=== PATIENT | female | born 1995 | race American Indian/Alaskan Native ===

== ENCOUNTER 2017-09-04 02:30 | Emergency (ER) | payer MEDICAID ==
[2017-09-04] MEDS ORDERED: Acetaminophen 325 MG Tab PO ONE (03:00)
[2017-09-04 03:34] LABS: CHLORIDE,CL 109 mmol/L (101-111); SODIUM,NA 137 mmol/L (135-145)
--- NOTE | 2017-09-04 03:41 | EDM.PDOC ---
ED HPI GENERAL MEDICAL PROBLEM - General Chief Complaint: Headache Stated Complaint: HEADACHES Time Seen by Provider: 09/04/17 02:58 Source of Information: Reports: Patient History Limitations: Reports: No Limitations - History of Present Illness INITIAL COMMENTS - FREE TEXT/NARRATIVE: C/o headache for past 3 days with congestion and cough. Tried tylenol yesterday and seemed to help for awhile. No vomiting. Ears hurt, feel full, sorethroat. Unsure if fever. Last Tylenol yesterday morning. Bilateral Head Pain Score (Numeric/FACES): 6 - Related Data Allergies Allergy/AdvReac Type Severity Reaction Status Date / Time No Known Allergies Allergy Verified 09/04/17 02:59 Home Meds: Home Meds . [No Known Home Meds] 09/04/17 [History] Past Medical History - Past Health History Medical/Surgical History: Denies Medical/Surgical History Cardiovascular History: Reports: Syncope, Other (See Below) Other Cardiovascular History: chest pain [employer] History: Reports: - Past Surgical History Cardiovascular Surgical History: Reports: None Social & Family History - Family History Family Medical History: Noncontributory - Tobacco Use Smoking Status *Q: Current Every Day Smoker Years of Tobacco use: 4 Packs/Tins Daily: 1 Second Hand Smoke Exposure: Yes - Caffeine Use Caffeine Use: Reports: Soda - Alcohol Use Days Per Week of Alcohol Use: 0 - Recreational Drug Use Recreational Drug Use: No - Living Situation & Occupation Living situation: Reports: with Family Occupation: Student ED ROS GENERAL - Review of Systems Review Of Systems: See Below Constitutional: Reports: Fatigue HEENT: Reports: Ear Pain, Sinus Problem Respiratory: Reports: Cough GI/Abdominal: Reports: No Symptoms : Reports: No Symptoms Musculoskeletal: Reports: No Symptoms Skin: Reports: Wound Neurological: Reports: No Symptoms Psychiatric: Reports: No Symptoms - Physical Exam Exam: See Below Exam Limited By: No Limitations General Appearance: Alert, Anxious, Mild Distress Eye Exam: Bilateral Eye: EOMI, PERRL Ears: Normal External Exam Nose: Normal Inspection Throat/Mouth: Normal Inspection Head Exam: Atraumatic Neck: Normal Inspection, Full Range of Motion Respiratory/Chest: No Respiratory Distress, Lungs Clear, Normal Breath Sounds, Other (ocassional dry cough) Cardiovascular: Normal Peripheral Pulses, Regular Rate, Rhythm, No Edema GI/Abdominal: Normal Bowel Sounds (Female) Exam: Vaginal Discharge Neuro Exam (Abbreviated): Alert, Oriented, Normal Cognition Course - Vital Signs Last Recorded V/S: Last Vital Signs Temp 98.4 F 09/04/17 02:38 Pulse 109 H 09/04/17 02:38 Resp 16 09/04/17 02:38 BP 114/58 L 09/04/17 02:38 Pulse Ox 98 09/04/17 02:38 - Orders/Labs/Meds Orders: Active Orders 24 hr Category Date Time Status CULTURE STREP A CONFIRMATION [RM] Stat Lab 09/04/17 02:57 Results STREP SCRN A RAPID W CULT CONF [RM] Stat Lab 09/04/17 02:57 Ordered UA W/MICROSCOPIC [URIN] Stat Lab 09/04/17 03:20 Ordered Labs: Laboratory Tests 09/04/17 09/04/17 09/04/17 Range/Units 03:05 03:05 03:20 WBC 7.8 (5.0-10.0) 10^3/uL RBC 3.73 L (4.2-5.4) 10^6/uL Hgb 11.0 L D (12.0-16.0) g/dL Hct 32.9 L (37.0-47.0) % MCV 88.2 (80-100) fL MCH 29.5 (27.0-34.0) pg MCHC 33.4 (33.0-35.0) g/dL Plt Count 256 (150-450) 10^3/uL Neut % (Auto) 77.7 H (42.2-75.2) % Lymph % (Auto) 13.3 L (20.5-50.1) % Blair % (Auto) 7.9 (2-8) % Eos % (Auto) 0.8 L (1.0-3.0) % Baso % (Auto) 0.3 (0.0-1.0) % Add Manual Diff Yes Neutrophils % (Manual) 44 (42-75) % Band Neutrophils % 23 % Lymphocytes % (Manual) 19 L (20-50) % Atypical Lymphs % 0 % Monocytes % (Manual) 12 H (2-8) % Eosinophils % (Manual) 2 (1-3) % Basophils % (Manual) 0 Sodium 137 (135-145) mmol/L Potassium 3.3 L (3.6-5.0) mmol/L Chloride 109 (101-111) mmol/L Carbon Dioxide 21.0 (21.0-31.0) mmol/L Anion Gap 10.3 BUN 7 (7-18) mg/dL Creatinine 0.4 L (0.6-1.3) mg/dL Est Cr Clr Drug Dosing 195.34 mL/min Estimated GFR (MDRD) > 60 BUN/Creatinine Ratio 17.50 Glucose 135 H (74-105) mg/dL Calcium 8.6 (8.4-10.2) mg/dl Total Bilirubin 0.5 (0.2-1.0) mg/dL AST 28 (10-42) IU/L ALT 20 (10-60) IU/L Alkaline Phosphatase 79 (42-121) IU/L Total Protein 6.1 L (6.7-8.2) g/dl Albumin 2.7 L (3.2-5.5) g/dl Globulin 3.4 Albumin/Globulin Ratio 0.79 Urine Color Yellow (YELLOW) Urine Appearance Slightly cloudy (CLEAR) Urine pH 6.5 (5.0-9.0) Ur Specific Moore 1.010 (1.005-1.030) Urine Protein Negative (NEGATIVE) Urine Glucose (UA) Negative (NEGATIVE) Urine Ketones Negative (NEGATIVE) Urine Occult Blood Negative (NEGATIVE) Urine Nitrite Negative (NEGATIVE) Urine Bilirubin Negative (NEGATIVE) Urine Urobilinogen 0.2 (0.2-1.0) mg/dL Ur Leukocyte Esterase Negative (NEGATIVE) Urine RBC Not seen /HPF Urine WBC 0-5 (0-5/HPF) /HPF Ur Epithelial Cells Moderate H /HPF Urine Bacteria Moderate H (0-FEW/HPF) /HPF Urine Yeast Few H (0/HPF) /HPF Meds: Medications Discontinued Medications Generic Name Dose Route Start Last Admin Trade Name Freq PRN Reason Stop Dose Admin Acetaminophen 650 mg 09/04/17 03:00 09/04/17 03:12 Tylenol PO 09/04/17 03:01 650 mg NOW ONE Administration Departure - Departure Time of Disposition: 03:45 Disposition: Home, Self-Care 01 Condition: Good Clinical Impression: Sinusitis, Second trimester - Discharge Information Instructions: Sinus Headache Forms: ED Department Discharge Additional Instructions: Tylenol 650mg every 6 hours as needed for headache pain Muccinex or guaifenesin peer package instructions every 4 hours as needed clinic follow up Thursday if not improved - My Orders Last 24 Hours: My Active Orders 09/04/17 02:57 CULTURE STREP A CONFIRMATION [RM] Stat STREP SCRN A RAPID W CULT CONF [RM] Stat 09/04/17 03:20 UA W/MICROSCOPIC [URIN] Stat - Assessment/Plan Last 24 Hours: My Active Orders 09/04/17 02:57 CULTURE STREP A CONFIRMATION [RM] Stat STREP SCRN A RAPID W CULT CONF [RM] Stat 09/04/17 03:20 UA W/MICROSCOPIC [URIN] Stat
[2017-09-04 04:11] VITALS: BP 114/67
== END 2017-09-04 04:03 | disposition home or self-care (01) ==
LOC: DL.ED 02:30
DX: O99.512 Diseases of the respiratory system complicating pregnancy, second trimester (principal); J32.9 Chronic sinusitis, unspecified; O99.332 Smoking (tobacco) complicating pregnancy, second trimester; F17.210 Nicotine dependence, cigarettes, uncomplicated
CPT/HCPCS: 36415; 80053; 81001; 85025; 87081; 87430; 99284; A9270

== ENCOUNTER 2017-12-27 23:52 | Inpatient (IN) | payer MEDICAID ==
[2017-12-28] MEDS ORDERED: fentaNYL 100 MCG/2 ML SDV ITHECAL ONE (01:20)
[2017-12-28] MEDS ORDERED: Bupivacaine 0.75%/D5W 2 ML Amp INJECT ONE (01:20)
[2017-12-28] MEDS ORDERED: ePHEDrine 50 MG/ML SDV IV ONE (01:20)
[2017-12-28] MEDS ORDERED: EPINEPHrine 1 MG/ML SDV IV ONE (01:20)
[2017-12-28] MEDS ORDERED: Penicillin G Potassium 5 MILLUNITS in Sodium Chloride 0.9% 100 ML IV ONE (01:35)
[2017-12-28] MEDS ORDERED: Sodium Chloride 0.9% 100 ML ONE (01:40)
[2017-12-28] MEDS: Lactated Ringers 1,000 ML IV SCH ×4 (01:45→07:08)
[2017-12-28] MEDS ORDERED: Methylergonovine 0.2 MG/1 ML Amp IM PRN (02:03)
[2017-12-28] MEDS ORDERED: Carboprost Tromethamine 250 MCG/1 ML Amp IM PRN (02:03)
[2017-12-28] MEDS ORDERED: Misoprostol 400 MCG (4 X 100 MCG TAB) RECTAL PRN ×2 (02:03→12:40)
[2017-12-28] MEDS ORDERED: Tranexamic Acid 1,000 MG in Sodium Chloride 0.9% 100 ML IV PRN (02:03)
[2017-12-28] MEDS ORDERED: Sodium Chloride 0.9% 10 ML Syringe FLUSH PRN (02:03)
[2017-12-28] MEDS ORDERED: Ondansetron 4 MG/2 ML SDV IV PRN (02:03)
[2017-12-28] MEDS ORDERED: Lidocaine 1% 30 ML SDV INJECT PRN (02:03)
[2017-12-28] MEDS ORDERED: Acetaminophen 325 MG Tab PO PRN (02:03)
[2017-12-28] MEDS ORDERED: Lactated Ringers 500 ML IV ONE (02:03)
[2017-12-28] MEDS ORDERED: Lactated Ringers 1,000 ML IV SCH (02:15)
[2017-12-28] MEDS ORDERED: Oxytocin/Normal Saline 30 UNIT/500 ML BAG IV SCH ×2 (02:15→02:45)
[2017-12-28] MEDS ORDERED: Nalbuphine 10 MG/1 ML Vial IV PRN (03:00)
[2017-12-28] MEDS ORDERED: Nalbuphine 10 MG/1 ML Vial IM PRN (03:01)
[2017-12-28] MEDS ORDERED: EPINEPHrine 1 MG/ML SDV ONE (05:54)
[2017-12-28] MEDS ORDERED: fentaNYL 100 MCG/2 ML SDV ONE (05:54)
[2017-12-28] MEDS ORDERED: Bupivacaine 0.75%/D5W 2 ML Amp ONE (05:54)
[2017-12-28] MEDS: Penicillin G Potassium 3 MILLUNITS in Sodium Chloride 0.9% 100 ML IV SCH ×3 (06:00→21:56)
--- NOTE | 2017-12-28 06:44 | PCM.PRNOTE ---
- Free Text/Narrative Note: Requested to provide analgesia to full term patient in severe pain. Upon entering the room, patient is supine in bed complaining of severe abdominal/ pelvic pain and discomfort. Procedure was discussed with patient including adverse outcomes and expectations. Pt consented to analgesia, SAB/IT. Pt placed into a sitting position. Landmarks for SAB/IT were identified and marked. Hands were washed and appropriate PPE was applied. Back was prepped with betadine x3. A sterile, transparent, fenestrated drape was applied. Excess betadine was removed. Using 3 mL of a 1% lidocaine solution, a skin wheel was placed at the L3/L4 interspace. A 24 ga (4 inch) Pencan spinal needle was inserted until positive for CSF. Negative for heme or paresthesias. Injected fentanyl 30 mcg, sufentanil 25 mcg, and 10.5 mg of a 0.75% bupivacaine solution with an epi wash. Pt was placed left lateral position for approximately 5 minutes. Pt developed hypotension and was immediately turned further left lateral, O2 was applied and a fluid bolus was given. Pt was also given ephedrine 10mg IVP. Only had two decels then immediately returned to baseline. No further indications of hypotension after fluid bolus. Will continue to monitor. Procedure Date & Time: 12/28/2017 [id number]
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
--- NOTE | 2017-12-28 09:26 | PCM.SN ---
- Free Text/Narrative Note: DOS: 8-27-18 Tremaine is 22yo NA primip who was admitted during the night with SROM at term. evaluated and admitted by Brett. GBS + and has received 2 doses of PCN. IUPC placed and pitocin infusion started. intrathecal placed and working well. heart tracings reassuring. cervical exam--now completely dilated. bulging forebag palpable with cxn, and AROM reveals mod amount clear fluid. vertex still high and will let her labor down for a while. baseline 125 with early decels now noted. iupc showing peaks of 25 right now--will increase pitocin from 6 to maximize effectiveness while intrathecal is in. further management pending her clinical course. all questions answered for Tremaine, her SO and family. b
--- NOTE | 2017-12-28 09:58 | PN ---
DATE: 12/28/2017 SUBJECTIVE: The patient is still feeling her contractions. Ferning test came back positive. Blood pressure 139/67, heart rate 79. Tocometer has been reading contractions every 1-1/2 minutes, now it seemed to be maybe spacing out. OBJECTIVE: heart tones in the 130s to 140s range. Tocometer, difficult reading contractions, sometimes are as close as every 1-1/2 minutes apart. Fern test came back positive. Vaginal exam reveals her to be 3 cm, 85% to 90% effaced, 0 station, vertex suspected, and IUPC placed after discussion with the patient. ASSESSMENT/PLAN: 1. Intrauterine at 38 weeks by 13 and 2/7 week ultrasound with GBS positive status. Penicillin has been given and vaginal leaking with positive ferning, suspect premature rupture of membranes. We will start Pitocin if need be. IUPC has been placed to further evaluate and monitor contractions. 2. Impaired glucose tolerance. We will follow clinically and closely. At this point in time, initial sugar was within range. I did discuss with the patient, the plan as above. IUPC placed as above and she will be requesting something for pain in the future, and this was discussed with nurse as well. [facility] /[id number]
--- NOTE | 2017-12-28 10:04 | OBOUT ---
DATE: 12/28/2017 TIME OF NST: 1:20 to 1:40. REASON FOR NST: 1. Intrauterine at that time 38 weeks by 13 and 2/7 weeks ultrasound. 2. Contractions with cervical change. 3. Group B Streptococcus positive. 4. Vaginal leaking. 5. History of chlamydia in the first trimester, treated, negative on 12/11/2017. 6. Impaired glucose tolerance. 7. 1, para 0. NST INTERPRETATION: During this time period, heart tone baseline is approximately 130 and there are at least two 15 x 15 beat per minute accelerations, making this strip reactive. It is also noted to be reassuring. Tocometer reveals potential of 7 contractions during this time period felt by the patient. ASSESSMENT: 1. Nonstress test, reactive and reassuring. 2. Tocometer with contractions. PLAN: Please see admit history and physical for further details. [facility] /[id number]
--- NOTE | 2017-12-28 12:21 | PCM.DEL ---
L & D Note - General Info Date of Service: 12/28/17 (time of delivery 1127) Mother's Due Date: 01/11/18 (38 weeks) - Delivery Note Labor: Spontaneous, Augmented by Oxytocin Delivery Outcome: Livebirth Delivery Method: Spontaneous Vaginal Delivery-Single Infant Delivery Mode: Vacuum Extraction Presentation: was OP until delivery Nuchal Cord: None Prep: Povidone-Iodine (Betadine Anesthesia Type: Local, Intrathecal Anesthetic: Lidocaine (Xylocaine) 1% Plain Local Anesthetic Volume: 5cc Amniotic Fluid Description: Clear Episiotomy Type: None Laceration: 2nd Degree Suture type: Vicryl Suture size: 2-0 Placenta: Intact, Expressed Cord: 3 Vessels Estimated Blood Loss: 250 Resuscitation Needed: No [place]: Suctioned, Bulb Syringe, Stimulated, Warmed, [place] Used Provider: Mariel Coleman Score 1 min: 8 Score 5 min: 9 Second Stage Interventions: Reports: Laboring Down, Pushing Effectively, Pushing , Feet in Foot Rests, Pushing, Pulls Own Legs Back Delivery Comments (Free Text/Narrative):: Pushing well with assist of family and staff, pulling legs back. baby OP position, coming down to . low profile vacuum applied X 1 cxn and baby rotated and delivered JUANA without difficulty. delivered to mother's abdomen. APGARs 8 & 9 Vacuum Extractor Progress Note - Alternative Labor Strategies Considered Alternative Labor Strategies Considered:: Reports: Yes Strategies Considered:: Reports: Contraction Intensity Adequate, Position Changes Used to Facilitate Rotation & Descent, Empty Bladder, Rest Indications Considered:: Reports: Yes Indications:: Reports: Shortening of 2nd Stage for Maternal Benefit, Suspicion of Immediate or Potential Compromise Time Out:: Reports: Yes - Patient Prepared Patient Prepared:: Reports: Yes Informed Consent:: Reports: Yes, Verbal Risks: Reports: Yes Anesthesia/Analgesia Adequate:: Reports: Yes - Probability of Success High Probability of Success:: Reports: Yes Weight Estimated:: Reports: AGA Patient Diabetic:: Reports: Yes Pelvis Adequate:: Reports: Yes Position:: OP at time of application, rotated to JUANA at delivery Asynclitic:: Reports: No Station:: - Application Time Maximum Application Time & Number of Pop-Offs Predetermined:: Reports: Yes Total Application Time (min): *max=20min: 2 (1 cxn) Number of Times Cup Disengaged:: 0 Type of Vacuum Used:: Reports: Low profile Comments:: applied with part of 1 cxn - Exit Strategy Exit strategy available:: Reports: Yes and resuscitation teams readily available:: Reports: Yes Consult as indicated:: not indicated - General Info Date of Service: 12/28/17 Admission Dx/Problem (Free Text): 38 week 22yo NA G1 SROM pitocin augmentation IUPC VAVD intrathecal 2 degree lac gestational DM/glucose intolerance GBS+ A+ RI Hx chlamydia Functional Status: Reports: Pain Controlled - Review of Systems General: Reports: No Symptoms HEENT: Reports: No Symptoms Pulmonary: Reports: No Symptoms Cardiovascular: Reports: No Symptoms Gastrointestinal: Reports: No Symptoms Genitourinary: Reports: No Symptoms Musculoskeletal: Reports: No Symptoms Skin: Reports: No Symptoms Neurological: Reports: No Symptoms Psychiatric: Reports: No Symptoms - Patient Data Vitals - Most Recent: Last Vital Signs Temp 98.6 F 12/28/17 06:08 Pulse 76 12/28/17 07:05 Resp 16 12/28/17 07:05 BP 115/64 12/28/17 07:05 Pulse Ox 99 12/28/17 07:00 Weight - Most Recent: 255 lb Lab Results Last 24 Hours: Laboratory Results - last 24 hr 12/28/17 12/28/17 12/28/17 Range/Units 00:05 00:24 01:50 WBC (5.0-10.0) 10^3/uL RBC (4.2-5.4) 10^6/uL Hgb (12.0-16.0) g/dL Hct (37.0-47.0) % MCV (80-100) fL MCH (27.0-34.0) pg MCHC (33.0-35.0) g/dL Plt Count (150-450) 10^3/uL POC Glucose 71 (70-105) mg/dl Urine Color Yellow (YELLOW) Urine Appearance Turbid (CLEAR) Urine pH 6.5 (5.0-9.0) Ur Specific [place] 1.025 (1.005-1.030) Urine Protein 30 H (NEGATIVE) Urine Glucose (UA) Negative (NEGATIVE) Urine Ketones Negative (NEGATIVE) Urine Occult Blood Negative (NEGATIVE) Urine Nitrite Negative (NEGATIVE) Urine Bilirubin Negative (NEGATIVE) Urine Urobilinogen 0.2 (0.2-1.0) mg/dL Ur Leukocyte Esterase Negative (NEGATIVE) Urine RBC 5-10 H /HPF Urine WBC 20-30 H (0-5/HPF) /HPF Ur Epithelial Cells Many H /HPF Amorphous Sediment Few (0/HPF) /HPF Urine Bacteria Moderate H (0-FEW/HPF) /HPF Urine Mucus Few H /LPF Amniotic Ferning Test Present 12/28/17 Range/Units 02:45 WBC 10.5 H (5.0-10.0) 10^3/uL RBC 4.01 L (4.2-5.4) 10^6/uL Hgb 11.8 L (12.0-16.0) g/dL Hct 35.6 L (37.0-47.0) % MCV 88.8 (80-100) fL MCH 29.4 (27.0-34.0) pg MCHC 33.1 (33.0-35.0) g/dL Plt Count 289 (150-450) 10^3/uL POC Glucose (70-105) mg/dl Urine Color (YELLOW) Urine Appearance (CLEAR) Urine pH (5.0-9.0) Ur Specific [place] (1.005-1.030) Urine Protein (NEGATIVE) Urine Glucose (UA) (NEGATIVE) Urine Ketones (NEGATIVE) Urine Occult Blood (NEGATIVE) Urine Nitrite (NEGATIVE) Urine Bilirubin (NEGATIVE) Urine Urobilinogen (0.2-1.0) mg/dL Ur Leukocyte Esterase (NEGATIVE) Urine RBC /HPF Urine WBC (0-5/HPF) /HPF Ur Epithelial Cells /HPF Amorphous Sediment (0/HPF) /HPF Urine Bacteria (0-FEW/HPF) /HPF Urine Mucus /LPF Amniotic Ferning Test Med Orders - Current: Current Medications Acetaminophen (Tylenol) 650 mg PO Q4H PRN PRN Reason: Pain (Mild 1-3) and fever Carboprost Tromethamine (Hemabate Ds) 250 mcg IM ASDIRECTED PRN PRN Reason: HEMORRHAGE Lactated Ringer's (Ringers, Lactated) 1,000 mls @ 125 mls/hr IV ASDIRECTED AVA Last Admin: 12/28/17 07:08 Dose: 125 mls/hr Lactated Ringer's (Ringers, Lactated) 1,000 mls @ 125 mls/hr IV ASDIRECTED AVA Oxytocin/Sodium Chloride (Pitocin In Ns 30 Unit/500 Ml) 30 unit in 500 mls @ 2 mls/hr IV TITRATE AVA; Protocol Last Titration: 12/28/17 06:49 Dose: 0 mls/hr Penicillin G Potassium 3 (millunits/ Sodium Chloride) 100 mls @ 200 mls/hr IV Q4HR AVA Last Admin: 12/28/17 10:41 Dose: 200 mls/hr Tranexamic Acid 1,000 mg/ (Sodium Chloride) 110 mls @ 660 mls/hr IV ONETIME PRN PRN Reason: Bleeding Oxytocin/Sodium Chloride (Pitocin In Ns 30 Unit/500 Ml) 30 unit in 500 mls @ 2 mls/hr IV TITRATE AVA; Protocol Lidocaine HCl (Xylocaine-Mpf 1%) 10 ml INJECT ASDIRECTED PRN PRN Reason: Perineal Repair Methylergonovine Maleate (Methergine) 0.2 mg IM ASDIRECTED PRN PRN Reason: Hemorrhage Misoprostol (Cytotec) 800 mcg RECTAL ASDIRECTED PRN PRN Reason: Hemorrhage Nalbuphine HCl (Nubain) 10 mg IV ONETIME PRN PRN Reason: pain Nalbuphine HCl (Nubain) 20 mg IM ONETIME PRN PRN Reason: Pain Last Admin: 12/28/17 03:57 Dose: 20 mg Ondansetron HCl (Zofran) 4 mg IV Q4H PRN PRN Reason: Nausea/Vomiting Sodium Chloride (Saline Flush) 10 ml FLUSH ASDIRECTED PRN PRN Reason: Keep Vein Open Discontinued Medications Bupivacaine HCl/Dextrose (Marcaine 0.75% Spinal) Confirm Administered Dose 2 ml .ROUTE .STK-MED ONE Stop: 12/28/17 05:55 Bupivacaine HCl/Dextrose (Marcaine 0.75% Spinal) 1.4 ml INJECT .STK-MED ONE Stop: 12/28/17 01:21 Ephedrine Sulfate (Ephedrine Sulfate) 20 mg IV .STK-MED ONE Stop: 12/28/17 01:21 Epinephrine HCl (Adrenalin) Confirm Administered Dose 1 mg .ROUTE .STK-MED ONE Stop: 12/28/17 05:55 Epinephrine HCl (Adrenalin) 0.1 mg IV .STK-MED ONE Stop: 08/27/18 01:21 Fentanyl (Sublimaze) Confirm Administered Dose 100 mcg .ROUTE .STK-MED ONE Stop: 12/28/17 05:55 Fentanyl (Sublimaze) 30 mcg ITHECAL .STK-MED ONE Stop: 12/28/17 01:21 Penicillin G Potassium 5 (millunits/ Sodium Chloride) 100 mls @ 200 mls/hr IV ONETIME ONE Stop: 12/28/17 02:04 Last Admin: 12/28/17 01:45 Dose: 200 mls/hr Sodium Chloride (Normal Saline) Confirm Administered Dose 100 mls @ as directed .ROUTE .STK-MED ONE Stop: 12/28/17 01:41 Lactated Ringer's (Ringers, Lactated) 500 mls @ 500 mls/hr IV .BOLUS ONE Stop: 12/28/17 03:02 Lidocaine HCl (Xylocaine-Mpf 1%) 3 ml INJECT .STK-MED ONE Stop: 12/28/17 01:21 Sufentanil Citrate (Sufenta) Confirm Administered Dose 50 mcg .ROUTE .STK-MED ONE Stop: 12/28/17 05:55 Sufentanil Citrate (Sufenta) 25 mcg ITHECAL .STK-MED ONE Stop: 12/28/17 01:21 - Exam General: Alert, Oriented HEENT: Pupils Equal, Pupils Reactive, EOMI, Mucous Membr. Moist/Finger Neck: Supple Lungs: Clear to Auscultation, Normal Respiratory Effort Cardiovascular: Regular Rate, Regular Rhythm GI/Abdominal Exam: Normal Bowel Sounds, Soft, Non-Tender, No Organomegaly, No Distention, No Abnormal Bruit, No Mass, Pelvis Stable (Female) Exam: Enlarged Uterus, Vaginal Bleeding (EBL 250), Vaginal Tears ( 2nd degree. rectal check done--no tear.) Back Exam: Normal Inspection, Full Range of Motion Extremities: Normal Inspection, Normal Range of Motion, Non-Tender, No Pedal Edema, Normal Capillary Refill Skin: Warm, Dry, Intact Wound/Incisions: Healing Well Neurological: No New Focal Deficit Psy/Mental Status: Alert, Normal Affect, Normal Mood - Problem List & Annotations (1) Group B streptococcal carriage complicating SNOMED Code(s): 210699767822003 Code(s): O99.820 - STREPTOCOCCUS B CARRIER STATE COMPLICATING Status: Acute Current Visit: Yes (2) Blood type A+ SNOMED Code(s): 235210422 Code(s): Z67.10 - TYPE A BLOOD, RH POSITIVE Status: Acute Current Visit: Yes (3) Rubella immune SNOMED Code(s): 354919438 Code(s): Z78.9 - OTHER SPECIFIED HEALTH STATUS Status: Acute Current Visit: Yes (4) Smoker SNOMED Code(s): 17243591 Code(s): F17.200 - NICOTINE DEPENDENCE, UNSPECIFIED, UNCOMPLICATED Status: Acute Current Visit: Yes (5) Chlamydia infection affecting in first trimester SNOMED Code(s): 324878258, 913672827 Code(s): O98.811 - OTH MATERNAL INFEC/PARASTC DISEASES COMP PREG, FIRST TRI; A74.9 - CHLAMYDIAL INFECTION, UNSPECIFIED Status: Acute Current Visit: Yes (6) Vacuum extraction, delivered, current hospitalization SNOMED Code(s): 399159708 Code(s): O66.5 - ATTEMPTED APPLICATION OF VACUUM EXTRACTOR AND FORCEPS Status: Acute Current Visit: Yes (7) Vaginal delivery SNOMED Code(s): 813057972 Code(s): O80 - ENCOUNTER FOR FULL-TERM UNCOMPLICATED DELIVERY Status: Acute Current Visit: Yes - Problem List Review Problem List Initiated/Reviewed/Updated: Yes - Plan Plan:: Routine orders and cares. likely home on day #2 All questions answered. b
[2017-12-28] MEDS ORDERED: Zolpidem 5 MG Tab PO PRN (12:40)
[2017-12-28] MEDS ORDERED: Simethicone 80 MG Tab.Chew PO PRN (12:40)
[2017-12-28] MEDS ORDERED: Benzocaine/Menthol 20%-0.5% Spray 56 GM Canister TOP PRN (12:40)
[2017-12-28] MEDS: Ibuprofen 800 MG Tab PO PRN (17:08)
[2017-12-28] MEDS: Docusate Sodium 100 MG Cap PO PRN (21:35)
[2017-12-29] MEDS: Ibuprofen 800 MG Tab PO PRN ×2 (02:52→18:07)
[2017-12-29] MEDS: Prenatal Multivitamin with Calcium/Folic Acid/Iron Tab PO SCH (08:26)
[2017-12-29] MEDS: Docusate Sodium 100 MG Cap PO PRN (08:26)
--- NOTE | 2017-12-29 12:10 | PCM.SN ---
- Free Text/Narrative Note: DOS: 12-29-17 PPD #1 Doing well. reports bottom is "not too sore" eating well. voiding and ambulating ok. nursing, has met with client consultant. no complaints. flow decreasing. VSS afebrile. fundus firm. see nursing notes and graphics for further details. will continue with routine cares and orders. hgb check in a.m. breast pump Rx written. likely home tomorrow. All questions answered for the couple they appear happy with plan. b
[2017-12-30] MEDS: Docusate Sodium 100 MG Cap PO PRN (08:48)
[2017-12-30] MEDS: Prenatal Multivitamin with Calcium/Folic Acid/Iron Tab PO SCH (08:48)
[2017-12-30] MEDS: Ibuprofen 800 MG Tab PO PRN (08:48)
[2017-12-30 09:26] VITALS: BP 136/73
--- NOTE | 2017-12-30 10:11 | PCM.DCSUM1 ---
Discharge Summary - Hospital Course Free Text/Narrative:: Tremaine is a 22yo NA G1 now P1 who delivered on 12-28-17 by VAVD after presenting with SROM at term delivering a viable male , Matthew Anthony, without complications @ 1127 a.m. on 12-28-17 with APGARs of 8 & 9, and weight 7lb 14oz. . see admission H&P, notes and delivery notes for details. hmb HPI Initial Comments: GBS+ and received PCN RI RH positive glucose intolerance/GDM--somewhat controlled on diet Brief History: see episode. presented with SROM. Admitted by [facility]. started on pitocin. IUPC placed. intrathecal placed. AROM persistent forebag. VAVD with 2nd degree laceration repair under local. did well . Diagnosis: Stroke: No - Discharge Data Discharge Date: 12/30/17 Discharge Disposition: Home, Self-Care 01 Condition: Good - Discharge Diagnosis/Problem(s) (1) Group B streptococcal carriage complicating SNOMED Code(s): 380207253261680 ICD Code: O99.820 - STREPTOCOCCUS B CARRIER STATE COMPLICATING Status: Acute (2) Blood type A+ SNOMED Code(s): 241846558 ICD Code: Z67.10 - TYPE A BLOOD, RH POSITIVE Status: Acute (3) Rubella immune SNOMED Code(s): 492936383 ICD Code: Z78.9 - OTHER SPECIFIED HEALTH STATUS Status: Acute (4) Smoker SNOMED Code(s): 45911651 ICD Code: F17.200 - NICOTINE DEPENDENCE, UNSPECIFIED, UNCOMPLICATED Status : Acute (5) Chlamydia infection affecting in first trimester SNOMED Code(s): 375675165, 091149703 ICD Code: O98.811 - OTH MATERNAL INFEC/PARASTC DISEASES COMP PREG, FIRST TRI ; A74.9 - CHLAMYDIAL INFECTION, UNSPECIFIED Status: Acute (6) Vacuum extraction, delivered, current hospitalization SNOMED Code(s): 686915728 ICD Code: O66.5 - ATTEMPTED APPLICATION OF VACUUM EXTRACTOR AND FORCEPS Status: Acute (7) Vaginal delivery SNOMED Code(s): 203420957 ICD Code: O80 - ENCOUNTER FOR FULL-TERM UNCOMPLICATED DELIVERY Status: Acute (8) Mother currently breast-feeding SNOMED Code(s): 938949253 ICD Code: GED3435 - Status: Acute (9) Anemia, SNOMED Code(s): 682983340 ICD Code: O90.81 - ANEMIA OF THE PUERPERIUM Status: Acute - Patient Summary/Data Complications: none Consults: Consultations 12/29/17 14:10 Consult to Supervisor Electronics Inspection [CONS] Routine Labs Pending at D/C: none Hospital Course: did well seen by storage consultant breast pump initiated and Rx given. using APNO for sore nipples cramping some with nursing. fundus remains firm flow decreasing. voiding, eating and ambulating well ready for discharge 12-30-17 remains afebrile with VSS hmb - Patient Instructions Diet: Usual Diet as Tolerated Activity: As Tolerated, No Strenuous Activities Showering/Bathing: May Shower Notify Provider of: Fever, Increased Pain - Discharge Plan *PRESCRIPTION DRUG MONITORING PROGRAM REVIEWED*: Not Applicable *COPY OF PRESCRIPTION DRUG MONITORING REPORT IN PATIENT JOMAR: Not Applicable Home Medications: Home Meds #103/Iron Fumarate/Fa [ ] 1 tab PO DAILY 12/11/17 [ History] Patient Handouts: Vaginal Delivery, Care of a Perineal Tear Referrals: Mariel Coleman MD [Primary Care Provider] - (Please schedule your own 6 week appointment.) - Discharge Summary/Plan Comment DC Time >30 min.: No Discharge Summary/Plan Comment: follow up for 6 week check, and sooner prn. hmb - General Info Date of Service: 12/30/17 (DISCHARGE SUMMARY) Admission Dx/Problem (Free Text: 38 week 22yo NA G1 SROM pitocin augmentation IUPC VAVD intrathecal 2 degree lac gestational DM/glucose intolerance GBS+ A+ RI Hx chlamydia Subjective Update: doing well. nursing, using pump, using APNO--Rx given bowel/bladder ok. eating, voiding, ambulating OK. Afeb, VSS flow decreasing, cramping with nursing Functional Status: Reports: Pain Controlled, Tolerating Diet, Ambulating, Urinating - Review of Systems General: Reports: No Symptoms HEENT: Reports: No Symptoms Pulmonary: Reports: No Symptoms Cardiovascular: Reports: No Symptoms Gastrointestinal: Reports: No Symptoms Genitourinary: Reports: No Symptoms, Other (cramping with nursing, flow decreasing) Musculoskeletal: Reports: No Symptoms Skin: Reports: No Symptoms Neurological: Reports: No Symptoms Psychiatric: Reports: No Symptoms - Patient Data Vitals - Most Recent: Last Vital Signs Temp 98.1 F 12/30/17 09:25 Pulse 106 H 12/30/17 09:25 Resp 20 12/30/17 09:25 BP 136/73 12/30/17 09:25 Pulse Ox 99 12/30/17 09:25 Weight - Most Recent: 255 lb I&O - Last 24 hours: Intake & Output 12/29/17 12/30/17 12/30/17 22:59 06:59 14:59 Intake Total 400 Balance 400 Lab Results - Last 24 hrs: Laboratory Results - last 24 hr 12/30/17 Range/Units 06:02 WBC 8.6 (5.0-10.0) 10^3/uL RBC 3.33 L (4.2-5.4) 10^6/uL Hgb 9.9 L D (12.0-16.0) g/dL Hct 30.2 L (37.0-47.0) % MCV 90.7 (80-100) fL MCH 29.7 (27.0-34.0) pg MCHC 32.8 L (33.0-35.0) g/dL Plt Count 248 (150-450) 10^3/uL Med Orders - Current: Current Medications Acetaminophen (Tylenol) 650 mg PO Q4H PRN PRN Reason: Pain (Mild 1-3) and fever Benzocaine/Menthol (Dermoplast Pain Relief [place]) 0 gm TOP Q4H PRN PRN Reason: Perineal comfort measures Last Admin: 12/28/17 17:08 Dose: 1 applic Carboprost Tromethamine (Hemabate Ds) 250 mcg IM ASDIRECTED PRN PRN Reason: HEMORRHAGE Docusate Sodium (Colace) 100 mg PO BID PRN PRN Reason: Constipation Last Admin: 12/30/17 08:48 Dose: 100 mg Lactated Ringer's (Ringers, Lactated) 1,000 mls @ 125 mls/hr IV ASDIRECTED AVA Last Admin: 12/28/17 07:08 Dose: 125 mls/hr Lactated Ringer's (Ringers, Lactated) 1,000 mls @ 125 mls/hr IV ASDIRECTED AVA Oxytocin/Sodium Chloride (Pitocin In Ns 30 Unit/500 Ml) 30 unit in 500 mls @ 2 mls/hr IV TITRATE AVA; Protocol Last Titration: 12/28/17 12:43 Dose: Infused Tranexamic Acid 1,000 mg/ (Sodium Chloride) 110 mls @ 660 mls/hr IV ONETIME PRN PRN Reason: Bleeding Oxytocin/Sodium Chloride (Pitocin In Ns 30 Unit/500 Ml) 30 unit in 500 mls @ 2 mls/hr IV TITRATE AVA; Protocol Ibuprofen (Motrin) 800 mg PO Q8H PRN PRN Reason: Mild Pain or Fever Last Admin: 12/30/17 08:48 Dose: 800 mg Lidocaine HCl (Xylocaine-Mpf 1%) 10 ml INJECT ASDIRECTED PRN PRN Reason: Perineal Repair Last Admin: 12/28/17 11:30 Dose: 20 ml Methylergonovine Maleate (Methergine) 0.2 mg IM ASDIRECTED PRN PRN Reason: Hemorrhage Misoprostol (Cytotec) 800 mcg RECTAL ASDIRECTED PRN PRN Reason: Hemorrhage Misoprostol (Cytotec) 800 mcg RECTAL ONETIME PRN PRN Reason: Hemorrhage Nalbuphine HCl (Nubain) 10 mg IV ONETIME PRN PRN Reason: pain Nalbuphine HCl (Nubain) 20 mg IM ONETIME PRN PRN Reason: Pain Last Admin: 12/28/17 03:57 Dose: 20 mg Ondansetron HCl (Zofran) 4 mg IV Q4H PRN PRN Reason: Nausea/Vomiting Prenat Multivit/Avimor/Iron/Folic Ac ( Plus Iron) 1 each PO DAILY AVA Last Admin: 12/30/17 08:48 Dose: 1 each Simethicone (Simethicone) 80 mg PO Q4H PRN PRN Reason: Gas Sodium Chloride (Saline Flush) 10 ml FLUSH ASDIRECTED PRN PRN Reason: Keep Vein Open Zolpidem Tartrate (Ambien) 5 mg PO BEDTIME PRN PRN Reason: Insomnia Discontinued Medications Bupivacaine HCl/Dextrose (Marcaine 0.75% Spinal) Confirm Administered Dose 2 ml .ROUTE .STK-MED ONE Stop: 12/28/17 05:55 Last Admin: 12/28/17 21:36 Dose: Not Given Bupivacaine HCl/Dextrose (Marcaine 0.75% Spinal) 1.4 ml INJECT .STK-MED ONE Stop: 12/28/17 01:21 Ephedrine Sulfate (Ephedrine Sulfate) 20 mg IV .STK-MED ONE Stop: 12/28/17 01:21 Epinephrine HCl (Adrenalin) Confirm Administered Dose 1 mg .ROUTE .STK-MED ONE Stop: 12/28/17 05:55 Last Admin: 12/28/17 21:36 Dose: Not Given Epinephrine HCl (Adrenalin) 0.1 mg IV .STK-MED ONE Stop: 12/28/17 01:21 Fentanyl (Sublimaze) Confirm Administered Dose 100 mcg .ROUTE .STK-MED ONE Stop: 12/28/17 05:55 Last Admin: 12/28/17 21:36 Dose: Not Given Fentanyl (Sublimaze) 30 mcg ITHECAL .STK-MED ONE Stop: 12/28/17 01:21 Penicillin G Potassium 5 (millunits/ Sodium Chloride) 100 mls @ 200 mls/hr IV ONETIME ONE Stop: 12/28/17 02:04 Last Admin: 12/28/17 01:45 Dose: 200 mls/hr Sodium Chloride (Normal Saline) Confirm Administered Dose 100 mls @ as directed .ROUTE .STK-MED ONE Stop: 12/28/17 01:41 Last Admin: 12/28/17 21:35 Dose: Not Given Lactated Ringer's (Ringers, Lactated) 500 mls @ 500 mls/hr IV .BOLUS ONE Stop: 12/28/17 03:02 Last Admin: 12/28/17 21:36 Dose: Not Given Penicillin G Potassium 3 (millunits/ Sodium Chloride) 100 mls @ 200 mls/hr IV Q4HR AVA Last Admin: 12/28/17 21:56 Dose: Not Given Lidocaine HCl (Xylocaine-Mpf 1%) 3 ml INJECT .STK-MED ONE Stop: 12/28/17 01:21 Sufentanil Citrate (Sufenta) Confirm Administered Dose 50 mcg .ROUTE .STK-MED ONE Stop: 12/28/17 05:55 Last Admin: 12/28/17 21:37 Dose: Not Given Sufentanil Citrate (Sufenta) 25 mcg ITHECAL .STK-MED ONE Stop: 12/28/17 01:21 - Exam General: Reports: Alert, Oriented HEENT: Reports: Pupils Equal, Pupils Reactive, EOMI, Mucous Membr. Moist/[place] Neck: Reports: Supple Lungs: Reports: Clear to Auscultation, Normal Respiratory Effort Cardiovascular: Reports: Regular Rate, Regular Rhythm GI/Abdominal Exam: Normal Bowel Sounds, Soft, Non-Tender, No Organomegaly, No Distention, No Abnormal Bruit, No Mass, Pelvis Stable (Female) Exam: Normal External Exam, Enlarged Uterus, Vaginal Bleeding Rectal (Female) Exam: Deferred Back Exam: Reports: Normal Inspection, Full Range of Motion Extremities: Normal Inspection, Normal Range of Motion, Non-Tender, Normal Capillary Refill, Pedal Edema (trace) Skin: Reports: Warm, Dry, Intact Wound/Incisions: Reports: Healing Well Neurological: Reports: No New Focal Deficit Psy/Mental Status: Reports: Alert, Normal Affect, Normal Mood
== END 2017-12-30 10:45 | disposition home or self-care (01) | DRG 775 ==
LOC: DL.OBCHECK 23:52 → DL.OB 12-28 01:19 → OBSVTOIN 12-28 11:27
PROVIDERS: ADMIT Family Medicine; ATTEND Family Medicine
PROC: 10D07Z6 Extraction of Products of Conception, Vacuum, Via Natural or Artificial Opening (ICD-10-PCS; principal; 2017-12-28)
PROC: 0KQM0ZZ Repair Perineum Muscle, Open Approach (ICD-10-PCS; 2017-12-28)
PROC: 3E0R3BZ Introduction of Anesthetic Agent into Spinal Canal, Percutaneous Approach (ICD-10-PCS; 2017-12-28)
PROC: 10H07YZ Insertion of Other Device into Products of Conception, Via Natural or Artificial Opening (ICD-10-PCS; 2017-12-28)
DX: O99.824 Streptococcus B carrier state complicating childbirth (principal); O42.02 Full-term premature rupture of membranes, onset of labor within 24 hours of rupture; Z37.0 Single live birth; Z3A.37 37 weeks gestation of pregnancy; Z67.10 Type A blood, Rh positive; O32.8XX0 Maternal care for other malpresentation of fetus, not applicable or unspecified; O24.420 Gestational diabetes mellitus in childbirth, diet controlled; O70.1 Second degree perineal laceration during delivery; O99.334 Smoking (tobacco) complicating childbirth; F17.210 Nicotine dependence, cigarettes, uncomplicated; O90.81 Anemia of the puerperium; D64.9 Anemia, unspecified
CPT/HCPCS: 01967; 36415; 59300; 59409; 81001; 82274; 82962; 83986; 85027; A9270-GY; J0171; J2300; J2540; J2590; J3010; J7050; J7120

== ENCOUNTER 2018-01-03 03:44 | Emergency (ER) | payer MEDICAID ==
--- NOTE | 2018-01-03 04:23 | EDM.PDOC ---
ED HPI GENERAL MEDICAL PROBLEM - General Chief Complaint: COMPOSITION ROOFER Problem Stated Complaint: ABD CRAMPING HAD BABY LAST WEEK Time Seen by Provider: 01/03/18 04:10 Source of Information: Reports: Patient History Limitations: Reports: No Limitations - History of Present Illness INITIAL COMMENTS - FREE TEXT/NARRATIVE: This 22 yo female patient reports to the ED due to right lower quadrant abdominal pain. The patient believes her pain may have started at 0300 this morning. The patient reports she took an ibuprofen (800 mg) sometime after the pain started. The patient also reports that she took another pill from her auntie, but does not know what it was. The patient reports the pill was brown and white in color. The patient reports she had a child on 12/28/17. The patient reports she has been having normal bowel movements since delivery, but her last bowel movement was hard at the beginning, but ended up very soft. The patient reports that she does not have any pain or discomfort at the time of examination. 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, Other Medication(s) ("Some brown and white pill ") - Related Data Allergies Allergy/AdvReac Type Severity Reaction Status Date / Time No Known Allergies Allergy Verified 01/03/18 04:20 Home Meds: Home Meds #103/Iron Fumarate/Fa [ ] 1 tab PO DAILY 12/11/17 [ History] Past Medical History - Past Health History Medical/Surgical History: Denies Medical/Surgical History Cardiovascular History: Reports: Syncope, Other (See Below) Other Cardiovascular History: chest pain 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: Psychiatric History: Reports: Depression Endocrine/Metabolic History: Reports: Diabetes, Gestational - Past Surgical History Cardiovascular Surgical History: Reports: None Social & Family History - Family History Family Medical History: Noncontributory - Tobacco Use Smoking Status *Q: Current Every Day Smoker Years of Tobacco use: 4 Packs/Tins Daily: 10 Second Hand Smoke Exposure: No - Caffeine Use Caffeine Use: Reports: Coffee, Soda, Tea - Recreational Drug Use Recreational Drug Use: No - Living Situation & Occupation Living situation: Reports: with Family Occupation: Student ED ROS GENERAL - Review of Systems Review Of Systems: ROS reveals no pertinent complaints other than HPI. ED EXAM, GI/ABD - Physical Exam Exam: See Below Exam Limited By: No Limitations General Appearance: Alert, WD/WN, No Apparent Distress Eyes: Bilateral: Normal Appearance, EOMI Ears: Normal External Exam, Normal Canal, Hearing Grossly Normal, Normal TMs Nose: Normal Inspection, Normal Mucosa, No Blood Throat/Mouth: Normal Inspection, Normal Lips, Normal Teeth, Normal Gums, Normal Oropharynx, Normal Voice, No Airway Compromise Head: Atraumatic, Normocephalic Neck: Normal Inspection, Supple, Non-Tender, Full Range of Motion Respiratory/Chest: No Respiratory Distress, Lungs Clear, Normal Breath Sounds, No Accessory Muscle Use, Chest Non-Tender Cardiovascular: Normal Peripheral Pulses, Regular Rate, Rhythm, No Edema, No Gallop, No JVD, No Murmur, No Rub GI/Abdominal Exam: Normal Bowel Sounds, Soft, No Organomegaly, No Distention, No Abnormal Bruit, No Mass, Pelvis Stable, Tender (lower abdomen). No: Guarding , Rebound (Female) Exam: Deferred Rectal (Female) Exam: Deferred Back Exam: Normal Inspection, Full Range of Motion, NT Extremities: Normal Inspection, Normal Range of Motion, Non-Tender, Normal Capillary Refill, No Pedal Edema Neurological: Alert, Oriented, CN II-XII Intact, Normal Cognition, Normal Gait, Normal Reflexes, No Motor/Sensory Deficits Psychiatric: Normal Affect, Normal Mood Skin Exam: Warm, Dry, Intact, Normal Color, No Rash Lymphatic: No Adenopathy Course - Vital Signs Last Recorded V/S: Last Vital Signs Temp 36.8 C 01/03/18 04:01 Pulse 75 01/03/18 04:01 Resp 19 01/03/18 04:01 BP 127/67 01/03/18 04:01 Pulse Ox 99 01/03/18 04:01 - Orders/Labs/Meds Orders: Active Orders 24 hr Category Date Time Status CULTURE URINE [RM] Stat Lab 01/03/18 05:16 Ordered DRUG SCREEN URINE BIORAD [URCHEM] Stat Lab 01/03/18 04:27 Ordered UA W/MICROSCOPIC [URIN] Stat Lab 01/03/18 04:27 Ordered Amoxicillin/Clavulanate K [Augmentin 500 MG\\125 MG] Med 01/03/18 05:16 Once 1 tab PO ONETIME ONE Medication Orders Amoxicillin/Clavulanate Potassium (Augmentin 500 Mg\\125 Mg) 1 tab PO ONETIME ONE Stop: 01/03/18 05:17 Labs: Laboratory Tests 01/03/18 01/03/18 01/03/18 Range/Units 04:27 04:27 04:31 WBC 9.6 (5.0-10.0) 10^3/uL RBC 4.02 L (4.2-5.4) 10^6/uL Hgb 11.8 L D (12.0-16.0) g/dL Hct 36.0 L (37.0-47.0) % MCV 89.6 (80-100) fL MCH 29.4 (27.0-34.0) pg MCHC 32.8 L (33.0-35.0) g/dL Plt Count 324 D (150-450) 10^3/uL Neut % (Auto) 76.8 H (42.2-75.2) % Lymph % (Auto) 15.9 L (20.5-50.1) % Lanier % (Auto) 3.7 (2-8) % Eos % (Auto) 3.3 H (1.0-3.0) % Baso % (Auto) 0.3 (0.0-1.0) % Sodium (135-145) mmol/L Potassium (3.6-5.0) mmol/L Chloride (101-111) mmol/L Carbon Dioxide (21.0-31.0) mmol/L Anion Gap BUN (7-18) mg/dL Creatinine (0.6-1.3) mg/dL Est Cr Clr Drug Dosing mL/min Estimated GFR (MDRD) BUN/Creatinine Ratio Glucose (74-105) mg/dL Calcium (8.4-10.2) mg/dl Total Bilirubin (0.2-1.0) mg/dL AST (10-42) IU/L ALT (10-60) IU/L Alkaline Phosphatase (42-121) IU/L Total Protein (6.7-8.2) g/dl Albumin (3.2-5.5) g/dl Globulin Albumin/Globulin Ratio Urine Color Red (YELLOW) Urine Appearance Turbid (CLEAR) Urine pH 6.0 (5.0-9.0) Ur Specific [place] 1.025 (1.005-1.030) Urine Protein 100 H (NEGATIVE) Urine Glucose (UA) Negative (NEGATIVE) Urine Ketones 40 H (NEGATIVE) Urine Occult Blood Moderate H (NEGATIVE) Urine Nitrite Negative (NEGATIVE) Urine Bilirubin Small H (NEGATIVE) Urine Urobilinogen 2.0 H (0.2-1.0) mg/dL Ur Leukocyte Esterase Moderate H (NEGATIVE) Urine RBC >100 H /HPF Urine WBC 50-75 H (0-5/HPF) /HPF Ur Epithelial Cells Few /HPF Amorphous Sediment Occasional (0/HPF) /HPF Urine Bacteria Few (0-FEW/HPF) /HPF Urine Mucus Rare /LPF Urine Opiates Screen Negative (NEGATIVE) Ur Oxycodone Screen Negative (NEGATIVE) Urine Methadone Screen Negative (NEGATIVE) Ur Barbiturates Screen Negative (NEGATIVE) U Tricyclic Antidepress Negative (NEGATIVE) Ur Phencyclidine Scrn Negative (NEGATIVE) Ur Amphetamine Screen Negative (NEGATIVE) U Methamphetamines Scrn Negative (NEGATIVE) Urine MDMA Screen Negative (NEGATIVE) U Benzodiazepines Scrn Negative (NEGATIVE) Urine Cocaine Screen Negative (NEGATIVE) U Marijuana (THC) Screen Negative (NEGATIVE) 01/03/18 Range/Units 04:31 WBC (5.0-10.0) 10^3/uL RBC (4.2-5.4) 10^6/uL Hgb (12.0-16.0) g/dL Hct (37.0-47.0) % MCV (80-100) fL MCH (27.0-34.0) pg MCHC (33.0-35.0) g/dL Plt Count (150-450) 10^3/uL Neut % (Auto) (42.2-75.2) % Lymph % (Auto) (20.5-50.1) % Lanier % (Auto) (2-8) % Eos % (Auto) (1.0-3.0) % Baso % (Auto) (0.0-1.0) % Sodium 138 (135-145) mmol/L Potassium 3.6 (3.6-5.0) mmol/L Chloride 108 (101-111) mmol/L Carbon Dioxide 21.0 (21.0-31.0) mmol/L Anion Gap 12.6 BUN 11 (7-18) mg/dL Creatinine 0.7 (0.6-1.3) mg/dL Est Cr Clr Drug Dosing 110.70 mL/min Estimated GFR (MDRD) > 60 BUN/Creatinine Ratio 15.71 Glucose 89 (74-105) mg/dL Calcium 8.8 (8.4-10.2) mg/dl Total Bilirubin 1.1 H (0.2-1.0) mg/dL AST 41 (10-42) IU/L ALT 37 (10-60) IU/L Alkaline Phosphatase 126 H (42-121) IU/L Total Protein 6.8 (6.7-8.2) g/dl Albumin 3.0 L (3.2-5.5) g/dl Globulin 3.8 Albumin/Globulin Ratio 0.79 Urine Color (YELLOW) Urine Appearance (CLEAR) Urine pH (5.0-9.0) Ur Specific [place] (1.005-1.030) Urine Protein (NEGATIVE) Urine Glucose (UA) (NEGATIVE) Urine Ketones (NEGATIVE) Urine Occult Blood (NEGATIVE) Urine Nitrite (NEGATIVE) Urine Bilirubin (NEGATIVE) Urine Urobilinogen (0.2-1.0) mg/dL Ur Leukocyte Esterase (NEGATIVE) Urine RBC /HPF Urine WBC (0-5/HPF) /HPF Ur Epithelial Cells /HPF Amorphous Sediment (0/HPF) /HPF Urine Bacteria (0-FEW/HPF) /HPF Urine Mucus /LPF Urine Opiates Screen (NEGATIVE) Ur Oxycodone Screen (NEGATIVE) Urine Methadone Screen (NEGATIVE) Ur Barbiturates Screen (NEGATIVE) U Tricyclic Antidepress (NEGATIVE) Ur Phencyclidine Scrn (NEGATIVE) Ur Amphetamine Screen (NEGATIVE) U Methamphetamines Scrn (NEGATIVE) Urine MDMA Screen (NEGATIVE) U Benzodiazepines Scrn (NEGATIVE) Urine Cocaine Screen (NEGATIVE) U Marijuana (THC) Screen (NEGATIVE) Meds: Medications Generic Name Dose Route Start Last Admin Trade Name Freq PRN Reason Stop Dose Admin Amoxicillin/Clavulanate Potassium 1 tab 01/03/18 05:16 Augmentin 500 Mg\\125 Mg PO 01/03/18 05:17 ONETIME ONE Departure - Departure Time of Disposition: 05:17 Disposition: Home, Self-Care 01 Condition: Fair Clinical Impression: Urinary tract infection Qualifiers: Urinary tract infection type: site unspecified Hematuria presence: with hematuria Qualified Code(s): N39.0 - Urinary tract infection, site not specified ; R31.9 - Hematuria, unspecified - Discharge Information *PRESCRIPTION DRUG MONITORING PROGRAM REVIEWED*: Not Applicable *COPY OF PRESCRIPTION DRUG MONITORING REPORT IN PATIENT JOMAR: Not Applicable Instructions: Urinary Tract Infection, Adult, [id number] Forms: ED Department Discharge Care Plan Goals: The patient was advised of the examination and lab results during the visit. The patient was given an oral dose of Augmentin while in the ED. The patient was discharged with a script for Augmentin (500/125) to take 1 by mouth 2 times per day for 3 days. If the patient has any additional symptoms or concerns, the patient should follow-up with her primary care facility or return to the emergency department. - My Orders Last 24 Hours: My Active Orders 01/03/18 04:27 DRUG SCREEN URINE BIORAD [URCHEM] Stat UA W/MICROSCOPIC [URIN] Stat 01/03/18 05:16 CULTURE URINE [RM] Stat Amoxicillin/Clavulanate K [Augmentin 500 MG\\125 MG] 1 tab PO ONETIME ONE - Assessment/Plan Last 24 Hours: My Active Orders 01/03/18 04:27 DRUG SCREEN URINE BIORAD [URCHEM] Stat UA W/MICROSCOPIC [URIN] Stat 01/03/18 05:16 CULTURE URINE [RM] Stat Amoxicillin/Clavulanate K [Augmentin 500 MG\\125 MG] 1 tab PO ONETIME ONE
[2018-01-03 05:09] LABS: ANION GAP 12.6; CHLORIDE,CL 108 mmol/L (101-111); SODIUM,NA 138 mmol/L (135-145)
[2018-01-03] MEDS ORDERED: Amoxicillin/Clavulanate K 500-125 MG Tab PO ONE (05:16)
[2018-01-03 05:32] VITALS: BP 121/65
== END 2018-01-03 05:26 | disposition home or self-care (01) ==
LOC: DL.ED 03:44
DX: O86.20 Urinary tract infection following delivery, unspecified (principal); R31.9 Hematuria, unspecified; O99.335 Smoking (tobacco) complicating the puerperium; F17.210 Nicotine dependence, cigarettes, uncomplicated; Z79.899 Other long term (current) drug therapy
CPT/HCPCS: 36415; 80053; 80305; 81001; 85025; 87086; 99283; A9270

== ENCOUNTER 2021-01-24 05:58 | Emergency (ER) | payer MEDICAID ==
--- NOTE | 2021-01-24 07:05 | EDM.PDOC ---
<RossiAyala - Last Filed: 01/24/21 08:05> ED HPI GENERAL MEDICAL PROBLEM - General Chief Complaint: Skin Complaint Stated Complaint: FOOT AND MOUTH DISEASE ? Time Seen by Provider: 01/24/21 06:45 - Related Data Allergies Allergy/AdvReac Type Severity Reaction Status Date / Time No Known Allergies Allergy Verified 01/03/18 04:20 Home Meds: Home Meds #103/Iron Fumarate/Fa [ ] 1 tab PO DAILY 12/11/17 [History] Course - Re-Assessments/Exams Free Text/Narrative Re-Assessment/Exam: 01/24/21 08:02 Patient states rash is itchy. States palms of hands and soles of feet are tingly. Patient instructed to treat symptomatically unless worsening which at that point to return with her primary care provider in the clinic or return to ER. Departure - Departure Time of Disposition: 08:03 Disposition: Home, Self-Care 01 Condition: Good Clinical Impression: Rash Pharyngitis Qualifiers: Pharyngitis/tonsillitis etiology: unspecified etiology Qualified Code(s): J02.9 - Acute pharyngitis, unspecified - Discharge Information *PRESCRIPTION DRUG MONITORING PROGRAM REVIEWED*: No *COPY OF PRESCRIPTION DRUG MONITORING REPORT IN PATIENT JOMAR: No Instructions: Pharyngitis, [id number], Rash, Adult, [id number] Forms: ED Department Discharge Additional Instructions: May use Tylenol and/or ibuprofen as directed for fever/pain Be sure to drink plenty of water/fluids and stay hydrated May use Benadryl [id number] as directed for itching Follow-up in the clinic with your primary care provider or return to ER with any worsening of symptoms <Radha Vasques - Last Filed: 01/25/21 04:50> ED HPI GENERAL MEDICAL PROBLEM - General Source of Information: Reports: Patient History Limitations: Reports: No Limitations - History of Present Illness INITIAL COMMENTS - FREE TEXT/NARRATIVE: ED with c/o rash and sore throat x 2 days. No fever or chills. Denies ear pain. 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: Psychiatric History: Reports: Depression Endocrine/Metabolic History: Reports: Diabetes, Gestational - Past Surgical History Cardiovascular Surgical History: Reports: None Social & Family History - Family History Family Medical History: No Pertinent Family History - Tobacco Use Tobacco Use Status *Q: Current Every Day Tobacco User Years of Tobacco use: 5 Packs/Tins Daily: 0.4 - Caffeine Use Caffeine Use: Reports: Coffee, Soda, Tea - Living Situation & Occupation Living situation: Reports: with Family Occupation: Student ED ROS GENERAL - Review of Systems Review Of Systems: Comprehensive ROS is negative, except as noted in HPI. ED EXAM, SKIN/RASH Exam: See Below Exam Limited By: No Limitations General Appearance: Alert, No Apparent Distress Eye Exam: Bilateral Eye: EOMI Ears: Normal External Exam Nose: Normal Inspection Throat/Mouth: Normal Inspection, Other (mild redness throat and tongue, ). No: Normal Oropharynx Head: Atraumatic, Normocephalic Neck: Normal Inspection Respiratory/Chest: No Respiratory Distress Cardiovascular: Normal Peripheral Pulses, Regular Rate, Rhythm Course - Vital Signs Last Recorded V/S: Last Vital Signs Temp 97.4 F 01/24/21 06:12 Pulse 78 01/24/21 07:31 Resp 18 01/24/21 07:31 BP 119/106 H 01/24/21 07:31 Pulse Ox 97 01/24/21 07:31 - Orders/Labs/Meds Orders: Active Orders 24 hr Category Date Time Status CULTURE STREP A CONFIRMATION [RM] Stat Lab 01/24/21 06:50 Results STREP SCRN A RAPID W CULT CONF [RM] Stat Lab 01/24/21 06:50 Results Meds: Medications Discontinued Medications Generic Name Dose Route Start Last Admin Trade Name Freq PRN Reason Stop Dose Admin Diphenhydramine HCl 50 mg 01/24/21 07:34 01/24/21 07:40 Diphenhydramine 50 Mg Cap PO 01/24/21 07:35 50 mg ONETIME ONE Administration - My Orders Last 24 Hours: My Active Orders 01/24/21 06:50 CULTURE STREP A CONFIRMATION [RM] Stat STREP SCRN A RAPID W CULT CONF [RM] Stat - Assessment/Plan Last 24 Hours: My Active Orders 01/24/21 06:50 CULTURE STREP A CONFIRMATION [RM] Stat STREP SCRN A RAPID W CULT CONF [RM] Stat
[2021-01-24 07:33] VITALS: BP 119/106; PULSE 78
[2021-01-24] MEDS ORDERED: diphenhydrAMINE 50 MG Cap PO ONE (07:34)
== END 2021-01-24 08:08 | disposition home or self-care (01) ==
LOC: DL.ED 05:58
DX: J02.9 Acute pharyngitis, unspecified (principal); R21 Rash and other nonspecific skin eruption; Z72.0 Tobacco use
CPT/HCPCS: 87081; 87430; 99283; Q0163

== ENCOUNTER 2022-07-02 07:45 | Inpatient (IN) | payer MEDICAID ==
[2022-07-02] MEDS ORDERED: Sodium Chloride 0.9% 10 ML Syringe FLUSH PRN (07:59)
[2022-07-02] MEDS ORDERED: Acetaminophen 325 MG Tab PO PRN (07:59)
[2022-07-02] MEDS ORDERED: Lactated Ringers 1,000 ML IV SCH (08:00)
[2022-07-02] MEDS ORDERED: Carboprost Tromethamine 250 MCG/1 ML Amp IM PRN (08:37)
[2022-07-02] MEDS ORDERED: Tranexamic Acid 1,000 MG in Sodium Chloride 0.9% 100 ML IV PRN (08:37)
[2022-07-02] MEDS ORDERED: Misoprostol 400 MCG (4 X 100 MCG TAB) RECTAL PRN (08:37)
[2022-07-02] MEDS ORDERED: Lidocaine 1% 30 ML SDV INJECT PRN (08:37)
[2022-07-02] MEDS ORDERED: Ondansetron 4 MG/2 ML SDV IVPUSH PRN (08:37)
[2022-07-02] MEDS ORDERED: Methylergonovine 0.2 MG/1 ML Amp IM PRN (08:37)
[2022-07-02] MEDS ORDERED: Oxytocin/Normal Saline 30 UNIT/500 ML BAG IV SCH (08:45)
[2022-07-02] MEDS ORDERED: Glucagon,Human Recombinant 1 MG Vial IM PRN ×2 (08:55→14:37)
[2022-07-02] MEDS ORDERED: Insulin Lispro 100 Units/ML 3 ML Vial SUBCUT ONE ×2 (08:55→14:37)
[2022-07-02] MEDS ORDERED: 50% Dextrose in Water 50 ML Syringe IVPUSH PRN ×2 (08:55→14:37)
[2022-07-02] MEDS: Misoprostol 25 MCG (1/4 of 100 MCG) Tab VAG PRN ×2 (09:20→14:39)
[2022-07-02] MEDS: Sodium Chloride 0.9% 10 ML Syringe FLUSH SCH ×2 (09:21→21:30)
[2022-07-02] MEDS: Lactated Ringers 1,000 ML IV SCH (13:44)
[2022-07-02] MEDS: Nicotine 7 MG/24 Hr Patch TRDERM SCH (17:39)
[2022-07-02] MEDS: Oxytocin/Normal Saline 30 UNIT/500 ML BAG IV SCH (19:13)
[2022-07-02] MEDS: Check Patch *NICOTINE TRDERM SCH (21:00)
[2022-07-03] MEDS ORDERED: hydrOXYzine HCl 25 MG Tab PO ONE (00:20)
[2022-07-03] MEDS: Misoprostol 25 MCG (1/4 of 100 MCG) Tab VAG PRN (01:37)
[2022-07-03] MEDS ORDERED: Misoprostol 25 MCG (1/4 of 100 MCG) Tab VAG PRN (10:20)
[2022-07-03] MEDS: Sodium Chloride 0.9% 10 ML Syringe FLUSH SCH (15:23)
[2022-07-03] MEDS: Nicotine 7 MG/24 Hr Patch TRDERM SCH (15:23)
[2022-07-03] MEDS: Lactated Ringers 1,000 ML IV SCH (15:27)
[2022-07-03] MEDS ORDERED: Sodium Bicarbonate 4.2% 2.5 MEQ/5 ML SDV ONE (16:43)
[2022-07-03] MEDS ORDERED: Bupivacaine 0.25% 10 ML SDV ONE ×2 (16:43)
[2022-07-03] MEDS ORDERED: Lidocaine 2% with EPINEPHrine 1:200,000 20 ML SDV ONE (17:06)
[2022-07-03] MEDS ORDERED: Acetaminophen 325 MG Tab PO PRN (17:27)
[2022-07-03] MEDS ORDERED: Benzocaine/Menthol 20%-0.5% Spray 78 GM Cannister TOP PRN (17:27)
[2022-07-03] MEDS ORDERED: Oxytocin 10 Units/1 ML SDV IM PRN (17:27)
[2022-07-03] MEDS ORDERED: Docusate Sodium 100 MG Cap PO PRN (17:27)
[2022-07-03] MEDS ORDERED: Simethicone 80 MG Tab.Chew PO PRN (17:27)
[2022-07-03] MEDS ORDERED: Witch Hazel Medicated Pads 100/Jar TOP PRN (17:31)
[2022-07-03] MEDS ORDERED: ePHEDrine 50 MG/ML SDV IVPUSH PRN (18:10)
[2022-07-03] MEDS ORDERED: Phenylephrine HCl In 0.9% NaCl 1 MG/10 ML Syringe IVPUSH PRN (18:10)
[2022-07-03] MEDS ORDERED: Ropivacaine 200 MG in Premix Bag 1 BAG EPIDUR SCH (18:15)
[2022-07-03] MEDS: Oxytocin/Normal Saline 30 UNIT/500 ML BAG IV SCH (19:15)
[2022-07-04] MEDS: Ibuprofen 800 MG Tab PO PRN ×2 (04:11→12:59)
[2022-07-04] MEDS: Sodium Chloride 0.9% 10 ML Syringe FLUSH SCH ×2 (04:34→10:26)
[2022-07-04] MEDS: Check Patch *NICOTINE TRDERM SCH (04:37)
[2022-07-04 08:21] VITALS: BP 111/52
[2022-07-04] MEDS ORDERED: Prenatal Multivitamin with Calcium/Folic Acid/Iron Tab PO SCH (09:00)
[2022-07-04] MEDS: Nicotine 7 MG/24 Hr Patch TRDERM SCH (13:00)
[2022-07-04 15:10] VITALS: PULSE 88
== END 2022-07-04 20:00 | disposition home or self-care (01) | DRG 807 ==
LOC: DL.OB 08:13 → OBSVTOIN 17:06
PROVIDERS: ADMIT Family Medicine; ATTEND Family Medicine
PROC: 10E0XZZ Delivery of Products of Conception, External Approach (ICD-10-PCS; principal; 2022-07-03)
PROC: 3E033VJ Introduction of Other Hormone into Peripheral Vein, Percutaneous Approach (ICD-10-PCS; 2022-07-03)
PROC: 3E0P7VZ Introduction of Hormone into Female Reproductive, Via Natural or Artificial Opening (ICD-10-PCS; 2022-07-03)
PROC: 3E0R3BZ Introduction of Anesthetic Agent into Spinal Canal, Percutaneous Approach (ICD-10-PCS; 2022-07-03)
PROC: 00HU33Z Insertion of Infusion Device into Spinal Canal, Percutaneous Approach (ICD-10-PCS; 2022-07-03)
DX: O24.420 Gestational diabetes mellitus in childbirth, diet controlled (principal); O99.02 Anemia complicating childbirth; D64.9 Anemia, unspecified; O99.334 Smoking (tobacco) complicating childbirth; F17.210 Nicotine dependence, cigarettes, uncomplicated; Z37.0 Single live birth; Z3A.39 39 weeks gestation of pregnancy
CPT/HCPCS: 01967; 36415; 59409; 82947; 85027; A9270-GY; J1815-GY; J2405; J2590; J2795; J3490; J7120; U0002

== ENCOUNTER 2023-05-27 11:20 | Inpatient (IN) | payer MEDICAID ==
[2023-05-27] MEDS ORDERED: diphenhydrAMINE 50 MG/ML SDV IVPUSH PRN (11:59)
[2023-05-27] MEDS ORDERED: Naloxone 2 MG/2 ML Syringe IVPUSH PRN (11:59)
[2023-05-27] MEDS ORDERED: Tranexamic Acid 1,000 MG in Sodium Chloride 0.9% 100 ML IV PRN (11:59)
[2023-05-27] MEDS ORDERED: Acetaminophen 325 MG Tab PO PRN (11:59)
[2023-05-27] MEDS ORDERED: ePHEDrine 50 MG/ML SDV IVPUSH PRN (11:59)
[2023-05-27] MEDS ORDERED: Ibuprofen 800 MG Tab PO PRN (11:59)
[2023-05-27] MEDS ORDERED: Methylergonovine 0.2 MG/1 ML Amp IM PRN (11:59)
[2023-05-27] MEDS ORDERED: Acetaminophen/oxyCODONE 325-5 MG Tab PO PRN (11:59)
[2023-05-27] MEDS ORDERED: Misoprostol 400 MCG (4 X 100 MCG TAB) RECTAL PRN (11:59)
[2023-05-27] MEDS ORDERED: Carboprost Tromethamine 250 MCG/1 ML Amp IM PRN (11:59)
[2023-05-27] MEDS ORDERED: Oxytocin/Normal Saline 30 UNIT/500 ML BAG IV SCH (12:00)
[2023-05-27 12:14] LABS: HEMATOCRIT 37.5 % (37.0-47.0); HEMOGLOBIN 12.3 g/dL (12.0-16.0); MEAN CORPUSCULAR HEMOGLOBIN 29.3 pg (27.0-34.0); MEAN CORPUSCULAR HGB CONC 32.8 g/dL (33.0-35.0); MEAN CORPUSCULAR VOLUME 89.3 fL (80-100); RED BLOOD CELL COUNT 4.2 10^6/uL (4.2-5.4)
[2023-05-27] MEDS ORDERED: Oxytocin/Normal Saline 30 UNIT/500 ML BAG ONE (12:15)
[2023-05-27] MEDS ORDERED: Oxytocin 10 Units/1 ML SDV ONE (12:16)
[2023-05-27] MEDS ORDERED: Citric Acid/Sodium Citrate Solution 30 ML Cup ONE (12:16)
[2023-05-27] MEDS ORDERED: ceFAZolin 1 GM Vial ONE ×2 (12:16→12:54)
[2023-05-27] MEDS ORDERED: ceFAZolin 1 GM Vial IVPUSH ONE (12:17)
[2023-05-27] MEDS ORDERED: Ketorolac 30 MG/ML SDV IVPUSH SCH (13:00)
[2023-05-27] MEDS: Lactated Ringers 1,000 ML IV SCH ×4 (13:46→20:03)
[2023-05-27] MEDS: Ondansetron 4 MG/2 ML SDV IVPUSH PRN ×2 (15:15→20:04)
[2023-05-27] MEDS ORDERED: Promethazine 25 MG/ML SDV IM PRN (16:07)
[2023-05-27] MEDS ORDERED: Citric Acid/Sodium Citrate Solution 30 ML Cup PO ONE (16:24)
[2023-05-27] MEDS: Simethicone 80 MG Tab.Chew PO SCH ×2 (17:31→21:33)
[2023-05-27] MEDS: Ketorolac 30 MG/ML SDV IVPUSH SCH (20:05)
[2023-05-28] MEDS: Lactated Ringers 1,000 ML IV SCH ×2 (00:54→09:05)
[2023-05-28] MEDS: Ketorolac 30 MG/ML SDV IVPUSH SCH ×2 (02:16→09:17)
[2023-05-28 06:34] LABS: HEMATOCRIT 31.7 % (37.0-47.0); HEMOGLOBIN 10.3 g/dL (12.0-16.0); MEAN CORPUSCULAR HEMOGLOBIN 29.4 pg (27.0-34.0); MEAN CORPUSCULAR HGB CONC 32.5 g/dL (33.0-35.0); MEAN CORPUSCULAR VOLUME 90.6 fL (80-100); RED BLOOD CELL COUNT 3.5 10^6/uL (4.2-5.4); WHITE BLOOD CELL COUNT,WBC 10.5 10^3/uL (5.0-10.0)
[2023-05-28] MEDS: Prenatal Multivitamin with Calcium/Folic Acid/Iron Tab PO SCH (08:30)
[2023-05-28] MEDS: Simethicone 80 MG Tab.Chew PO SCH ×4 (08:30→22:30)
[2023-05-28] MEDS: Docusate Sodium 100 MG Cap PO PRN ×2 (08:30→22:30)
[2023-05-28] MEDS: Ibuprofen 800 MG Tab PO PRN (17:33)
[2023-05-28] MEDS: Acetaminophen/oxyCODONE 325-5 MG Tab PO PRN (22:30)
[2023-05-29] MEDS: Ibuprofen 800 MG Tab PO PRN (03:06)
[2023-05-29] MEDS: Acetaminophen/oxyCODONE 325-5 MG Tab PO PRN (03:07)
[2023-05-29] MEDS: Docusate Sodium 100 MG Cap PO PRN (08:46)
[2023-05-29] MEDS: Prenatal Multivitamin with Calcium/Folic Acid/Iron Tab PO SCH (08:46)
[2023-05-29] MEDS: Simethicone 80 MG Tab.Chew PO SCH (08:46)
[2023-05-29 08:59] VITALS: BP 119/66; PULSE 63
[2023-05-29] MEDS ORDERED: Measles, Mumps & Rubella Vaccine 0.5 ML SDV SUBCUT ONE (09:00)
== END 2023-05-29 11:01 | disposition home or self-care (01) | DRG 787 ==
LOC: DL.OBCHECK 11:20 → DL.OB 12:35 → OBSVTOIN 13:00 → DL.OB 13:00
PROVIDERS: ADMIT Family Medicine; ATTEND Family Medicine
PROC: 10D00Z1 Extraction of Products of Conception, Low, Open Approach (ICD-10-PCS; principal; 2023-05-27 12:30)
DX: O32.1XX0 Maternal care for breech presentation, not applicable or unspecified (principal); D62 Acute posthemorrhagic anemia; O32.0XX0 Maternal care for unstable lie, not applicable or unspecified; O99.334 Smoking (tobacco) complicating childbirth; F17.210 Nicotine dependence, cigarettes, uncomplicated; O99.345 Other mental disorders complicating the puerperium; F53.0 Postpartum depression; O99.03 Anemia complicating the puerperium; Z3A.37 37 weeks gestation of pregnancy; Z37.0 Single live birth; Z28.39 Other underimmunization status
CPT/HCPCS: 36415; 76815; 85027; 86850; 86900; 86901; 90471; 90707; A9270-GY; J1885; J2405; J2550; J2590; J7120

== ENCOUNTER 2024-01-30 17:38 | Emergency (ER) | payer MEDICAID ==
[2024-01-30 19:55] VITALS: BP 125/60; PULSE 61
[2024-01-30] MEDS: Cyclobenzaprine 10 MG Tab PO ONE (20:47)
[2024-01-30] MEDS: Ketorolac 30 MG/ML SDV IM ONE (20:47)
[2024-01-30] MEDS: Take Home: Cyclobenzaprine 10 MG Tab, 4 Tab Pack PO ONE (20:54)
== END 2024-01-30 21:01 | disposition home or self-care (01) ==
LOC: DL.ED 17:38
DX: M54.42 Lumbago with sciatica, left side (principal); M46.1 Sacroiliitis, not elsewhere classified; F17.210 Nicotine dependence, cigarettes, uncomplicated; Z79.899 Other long term (current) drug therapy
CPT/HCPCS: 96372; 99283; A9270; J1885

== ENCOUNTER 2024-12-04 05:50 | Emergency (ER) | payer SELFPAY ==
[2024-12-04 06:16] VITALS: BP 111/72; PULSE 108
[2024-12-04] MEDS: Take Home: Acetaminophen/HYDROcodone 325-5 MG, 5 Tab Pack PO ONE (07:37)
== END 2024-12-04 07:37 | disposition home or self-care (01) ==
LOC: DL.ED 05:50
DX: S83.511A Sprain of anterior cruciate ligament of right knee, initial encounter (principal); X58.XXXA Exposure to other specified factors, initial encounter
CPT/HCPCS: 73560; 99283; A9270

== ENCOUNTER 2024-12-05 14:28 | Emergency (ER) | payer SELFPAY ==
[2024-12-05 14:54] VITALS: BP 127/62; PULSE 93
== END 2024-12-05 15:26 | disposition home or self-care (01) ==
LOC: DL.ED 14:28
DX: M23.91 Unspecified internal derangement of right knee (principal)
CPT/HCPCS: 99283